=== PATIENT | female | born 1960 | race Asian ===

== ENCOUNTER 2023-09-06 12:38 | Outpatient (AMB) | payer OTHER, SELFPAY ==
--- NOTE | 2023-09-06 12:40 | AM.OFFWIN_ITS ---
Intake Vital Signs 09/06/23 12:48 Height 5 ft 2 in Weight 165 lb BMI 30.2 BP 130/90 H Blood Pressure Location Lt brachial Position Sitting Pulse 77 Pulse Source Pulse Oximeter Temp 97.3 F Temp Source Temporal Artery Scan Pulse Oximetry (%) 98 Oxygen Delivery Method Room Air Intake Visit Reasons: Rt brow area/swelling/ Workmans Comp Intake Note: pt is here today for brow area swelling started today Patient Tobacco Use Status: Current everyday Tobacco user Allergies diphenhydramine [From Benadryl] Allergy (Intermediate, Verified 09/06/23 13:22) Unknown Do you need a note to return to daycare/school/sports/work: Yes HPI HPI Comments History of Present Illness Details Patient is a 63-year-old female in today for sick visit. 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 Patient is here following the accident with what appears to be a large hematoma above the right eyebrow. Patient has EOMI, cranial nerves are intact, however she is having diffuse facial pain radiating into her teeth, through the orbital bone, and forehead. Denies loss of consciousness. Not on blood thinners. Patient states she having some intermittent nausea. Patient is going to be directed to the emergency room likely need a CT scan. Patient has declined ambulance at this time, she states that she believes she can drive and is going to take her private vehicle. Patient was educated that it would be best to go by ambulance, to which she refused. [facility] Social History Patient Tobacco Use Status: Current everyday Tobacco user Physical Exam Vital Signs: Last Vital Signs Temp 97.3 F 09/06/23 12:48 Pulse 77 09/06/23 12:48 BP 130/90 H 09/06/23 12:48 Pulse Ox 98 09/06/23 12:48 Oxygen Delivery Method Room Air 09/06/23 12:48 BMI result Body Mass Index 30.2 Assessment & Plan Assessment & Plan (1) Hematoma: Comment: Patient has what appears to be large hematoma on right eyebrow. Diffuse facial pain. Patient has been sent to the emergency room. She has declined ambulance even after several attempts. Patient will be taking private vehicle. Code(s): T14.8XXA - Other injury of unspecified body region, initial encounter Plan: Sent to ER. Called a C triage several times no answer. Coding Level of Care Code Est Pt Level 3 (51628) Diagnoses Hematoma T14.8XXA Time Spent (min) 20
[2023-09-06 12:48] VITALS: BP 130/90; PULSE 77; TEMP 36.3; O2SAT 98; BMI 30.2
== END 2023-09-06 14:32 | disposition home or self-care (01) ==
PROVIDERS: PCP Internal Medicine; Visit Provider Nurse Practitioner Primary Care
DX: T14.8XXA Other injury of unspecified body region, initial encounter (principal); Z04.2 Encounter for examination and observation following work accident
CPT/HCPCS: 99213

== ENCOUNTER 2023-09-06 13:47 | Emergency (ER) | payer OTHER, SELFPAY ==
--- NOTE | ~2023-09-06 | CT_ITS ---
EXAMINATION: CT HEAD WITHOUT CONTRAST CT FACE WITHOUT CONTRAST CT CERVICAL SPINE WITHOUT CONTRAST CLINICAL INFORMATION: Large frontal hematoma. Trauma. Pain. COMPARISON: No relevant prior imaging. TECHNIQUE: [employer] Worker images were obtained. CT imaging of the head, face, and cervical spine was performed without contrast. Data was reformatted into multiplanar images at the acquisition workstation. This CT examination was performed using dose optimization techniques as appropriate, including one or more of the following: Automated exposure control, iterative reconstruction, and adjustment of technique factors (mA and/or kVp) according to patient size (this includes techniques or standardized protocols for targeted exams where dose is matched to indication/reason for exam). Fleischner Society criteria for the followup of incidental pulmonary nodules was implemented if appropriate. DLP: 1411 mGy-cm. FINDINGS: Head: There is a hematoma of the right frontal scalp and the supraorbital region. The underlying calvarium is intact. No acute intracranial hemorrhage or abnormal extra-axial collection. No intracranial mass effect or midline shift. Lateral and third ventricles are normal. No hydrocephalus. Scattered nonspecific foci of hypoattenuation are visualized within the periventricular white matter.. Milian-white matter differentiation is otherwise preserved and there is no evidence of acute territorial infarct. The skull base is intact. No mastoid or middle ear effusion. Face: Globes and extraocular muscles are symmetric. No abnormal retrobulbar are hematoma or inflammation. Lamina papyracea and orbital floors are intact. Orbital apices are unremarkable. Nasal bones, zygomatic arches, and pterygoid processes are intact. No acute mandibular fracture. The temporomandibular joints are grossly intact. Mild degenerative arthrosis of both temporomandibular joints, slightly greater on the left. There is no active paranasal sinus disease. All of the major paranasal sinus and pathways are patent. Cervical spine: There is 3 mm anterolisthesis of C4 on C5 that appears to be related to facet degenerative changes at this level. Slight anterolisthesis of C3 on C4 and C7 on T1. Vertebral body heights are preserved. No acute cervical spine fracture. No abnormal prevertebral soft tissue swelling. Canal patency is not well assessed on this examination due to inherent limitations of CT without intrathecal contrast. Grossly no canal compromise. Visualized soft tissues of neck are normal. Lung apices are clear. CT/CT facial bones wo IV con IMPRESSION: Head and Face: There is a hematoma of the right frontal scalp and the supraorbital region. The underlying calvarium is intact. No acute intracranial hemorrhage. No acute facial fracture. Cervical Spine: No acute cervical spine fracture. There is 3 mm anterolisthesis of C4 on C5 that appears to be related to facet degenerative changes at this level. Slight anterolisthesis of C3 on C4 and C7 on T1 that appears to be related to facet degenerative changes at these level.
[2023-09-06 14:18] VITALS: BP 144/96; PULSE 79; RESP 18; TEMP 36.8; O2SAT 97; BMI 30.4
--- NOTE | 2023-09-06 14:20 | ED_ITS ---
HPI - General Adult General Chief complaint: Head Injury Stated complaint: Head injury Time Seen by Provider: 09/06/23 17:26 Source: patient Mode of arrival: ambulatory Limitations: no limitations History of Present Illness HPI narrative: 63-year-old female who states no past medical history presents to ED for right forehead hematoma after large battery fell onto right side of her face at work. Patient denies any loss of consciousness or fall to the ground. Patient denies any other trauma or complaints. Related Data Previous Rx's Medication Instructions Recorded naproxen 500 mg tablet 500 mg PO BID PRN pain 7 days #14 09/06/23 tabs Allergies Allergy/AdvReac Type Severity Reaction Status Date / Time diphenhydramine Allergy Intermediate Unknown Verified 09/06/23 13:22 [From Dorina] Review of Systems 2 Review of Systems: Right forehead hematoma Yes all other systems are reviewed and are negative [facility] Social History Social History Patient Tobacco Use Status: Current everyday Tobacco user Advance Directives: No Advance Directives Information Provided: No Physical Exam ED Vital Signs: Vital Signs - 24 hr 09/06/23 14:18 Temperature 98.2 F Pulse Rate 79 Respiratory Rate 18 Blood Pressure 144/96 H Pulse Oximetry 97 Oxygen Delivery Method Room Air BMI result Body Mass Index 30.4 Const General: cooperative, healthy appearing, comfortable, no acute distress, well developed, alert, awake and Physically active Orientation/consciousness: oriented to person, oriented to place, oriented to time and patient oriented x3 HENMT Head: Yes normal to inspection, Yes No palpable skull fracture present, Yes normocephalic and Yes hematoma (right frontal) Head images: 2 1. Very large hematoma that is tender to palpation. Negative for any eye pain or photophobia. Negative for orbital tenderness or crepitus. Patient has complete range of motion of the eye muscles. Negative for signs of eye muscle entrapment. Negative for conjunctival erythema. Ears: hearing grossly normal bilaterally, external ears normal, TM's normal bilaterally, TM normal on the right, TM normal on the left, EAC's normal, mastoids normal and no periauricular adenopathy Eyes General: appearance normal, both eyes and all related structures Neck Neck: Yes normal visual inspection, Yes full ROM, Yes no lymphadenopathy, Yes no meningeal signs, Yes trachea midline, Yes supple, No anterior neck swelling and No tender Chest Chest palpation & inspection: normal inspection of the chest and normal palpation of entire chest wall Resp Effort & Inspection: normal respiratory effort and able to speak in complete sentences Auscultation: clear to auscultation bilaterally Cardio Jugular venous distension: no JVD Heart sounds: S1 normal heart sound present and S2 normal heart sound present GI Inspection: Yes normal to inspection Palpation (GI): Soft to palpation, not firm, nontender, no guarding and not rigid General: Yes no CVA tenderness Back/Spine/Pelvis Back: no CVA tenderness and No back tenderness Skin General skin exam: no rashes or lesions noted, elasticity normal and turgor normal Neuro General: oriented to person, oriented to place, oriented to time, patient oriented x3, gait normal, tone normal, moves all extremities, Normal light touch and pain sensation, no meningeal signs, no focal motor deficits, CN's II-XI intact bilaterally and normal sensation to monofilament Cranial nerves: Yes CN's II-XII intact bilaterally Extrem General: Yes normal to inspection, Yes full ROM and Yes capillary refill normal Psych Appearance: grossly normal, well kempt and not disheveled Course Course Course Narrative: RME: 63-year-old female presents to the ED for head injury. Patient states large 14 lb battery fell onto right side of her face which caused a large right frontal hematoma. Patient denies any blurry vision or loss of vision. Patient denies any nausea vomiting. Patient imaging ordered. Medical Decision Making Medical Decision Making [facility] Narrative: 63 yold female presents to the ED for facial trauma/head injury after large battery fell on face. Images came back normal. Physical exam negative for eye entrapment. Patient educated on placing ice on hematoma the 1st 24 hours then warm compresses. Patient explained worrisome signs informed to return to the ED if she has them. Patient informed to follow up with [facility]. Differential Diagnosis Differential Diagnoses: The differential diagnosis associated with the presentation includes (Skull fracture, eye fracture, brain bleed service, cervical spine fracture) Admission/Observation Consideration of admission/observation: Escalation of care including admission/observation considered Independent Interpretation I performed an independent interpretation of an: CT Scan Radiology Impression Discussion of test interpretation with radiology: I have reviewed the radiologist's reading. Independent Historian Clinical information obtained from an independent historian. History obtained from or confirmed by: Other (patient) External Record Review External record reviewed: Other (prior visits) Prescription Management I considered prescription management with: Pain Medication Discharge Plan Discharge Clinical Impression: Hematoma, Closed head injury, Work related injury Patient Disposition: Home, Self-Care Instructions: Head Injury (ED), Hematoma (ED) Additional Instructions: Return to the ED immediately for headache, nausea, vomiting, change in vision, eye pain, neck pain, altered mental status, lethargy, weakness, slurred speech, facial droop, abdominal pain, chest pain, shortness of breath, rectal bleeding, vomiting blood, bloody urine, or any other concerning symptoms. Prescriptions: New naproxen 500 mg tablet 500 mg PO BID PRN (Reason: pain) 7 Days Qty: 14 0RF Referrals: [facility] [Outside] (Head injury at work) Stand Alone Forms: Work/School Release Interventions: ED Discharge Assessment Last Done: 09/06/23 18:10 Discharge Date/Time: 09/06/23 18:12 Print Language: Indonesian
== END 2023-09-06 18:12 | disposition home or self-care (01) ==
PROVIDERS: Emergency Provider Emergency Medicine; PCP Internal Medicine
DX: S00.93XA Contusion of unspecified part of head, initial encounter (principal); R51.9 Headache, unspecified; M54.2 Cervicalgia; Y29.XXXA Contact with blunt object, undetermined intent, initial encounter; Y93.9 Activity, unspecified; Y92.9 Unspecified place or not applicable; Y99.0 Civilian activity done for income or pay
CPT/HCPCS: 70450; 70486; 72125; 99283; 99284

== ENCOUNTER 2024-06-26 05:52 | Emergency (ER) | payer OTHER, SELFPAY ==
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
[2024-06-26 05:55] VITALS: BP 139/104; BP 146/104; PULSE 102; PULSE 106; RESP 15; TEMP 36.9; O2SAT 96; BMI 29.3
[2024-06-26 06:04] VITALS: BP 139/104; PULSE 97; RESP 16; TEMP 36.9; O2SAT 98
[2024-06-26] MEDS: Acetaminophen 325 MG TABLET 975 MG PO (06:31)
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
[2024-06-26] MEDS: Ketorolac Tromethamine 15 MG/ML VIAL IM (08:31)
[2024-06-26 10:22] VITALS: BP 139/104; PULSE 97; RESP 16; TEMP 36.9; O2SAT 98
== END 2024-06-26 10:23 | disposition home or self-care (01) ==
PROVIDERS: Emergency Provider Emergency Medicine; PCP Internal Medicine
DX: S42.001A Fracture of unspecified part of right clavicle, initial encounter for closed fracture (principal); R51.9 Headache, unspecified; M54.2 Cervicalgia; M25.511 Pain in right shoulder; V47.5XXA Car driver injured in collision with fixed or stationary object in traffic accident, initial encounter; Y93.89 Activity, other specified; Y92.488 Other paved roadways as the place of occurrence of the external cause; Y99.8 Other external cause status
CPT/HCPCS: 29105; 70450; 72125; 73030; 96372; 99284; J1885

== ENCOUNTER → 2024-06-26 06:15 | Outpatient (BNV) | payer OTHER, SELFPAY | PROVIDERS: Emergency Provider Emergency Medicine; PCP Internal Medicine; Visit Provider Radiology Vascular & Interventional Radiology | DX: M79.12 Myalgia of auxiliary muscles, head and neck (principal); M25.511 Pain in right shoulder; Z04.3 Encounter for examination and observation following other accident | CPT/HCPCS: 70450; 72125; 73030 ==

== ENCOUNTER 2024-07-04 10:42 | Outpatient (AMB) | payer OTHER, SELFPAY ==
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
[2024-07-04 11:18] VITALS: BMI 29.3
== END 2024-07-04 12:01 | disposition home or self-care (01) ==
PROVIDERS: PCP Internal Medicine; Visit Provider Physician Assistant
DX: S42.001A Fracture of unspecified part of right clavicle, initial encounter for closed fracture (principal)
CPT/HCPCS: 99203; G2211

== ENCOUNTER 2024-08-03 09:23 | Outpatient (AMB) | payer OTHER, SELFPAY ==
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
== END 2024-08-03 10:27 | disposition home or self-care (01) ==
PROVIDERS: PCP Internal Medicine; Visit Provider Physician Assistant
DX: S42.001A Fracture of unspecified part of right clavicle, initial encounter for closed fracture (principal)
CPT/HCPCS: 99213

== ENCOUNTER → 2024-08-03 09:34 | Outpatient (BNV) | payer OTHER, SELFPAY | PROVIDERS: Visit Provider Radiology Diagnostic Radiology | DX: S42.001A Fracture of unspecified part of right clavicle, initial encounter for closed fracture (principal); Z04.3 Encounter for examination and observation following other accident | CPT/HCPCS: 73000 ==